=== PATIENT | female | born 1970 | race Caucasian/White ===

== ENCOUNTER 2016-11-23 10:59 | Outpatient (CLI) | payer OTHER ==
[2016-11-23 20:21] LABS: TOTAL PROTEIN 7.1 g/dL (6.0-8.5)
[2016-11-28 03:40] LABS: LH (LUTEINIZING HORMONE) 47.6 mIU/mL
== END 2016-11-23 11:05 ==
LOC: LAB 10:59
PROVIDERS: ATTEND Family Medicine
DX: Z00.00 Encounter for general adult medical examination without abnormal findings (principal); Z13.21 Encounter for screening for nutritional disorder; R53.83 Other fatigue; N91.2 Amenorrhea, unspecified
CPT/HCPCS: 36415; 80053; 80061; 82306; 83001; 83002